=== PATIENT | female | born 1955 | race Caucasian/White ===

== ENCOUNTER → 2021-12-06 | Outpatient (CLI) | payer MEDICARE ==
--- NOTE | 2021-12-07 01:55 | MR ---
EXAMINATION TYPE: MR brain wo/w con DATE OF EXAM: 12/06/2021 COMPARISON: HISTORY: Memory issues, confusion, balance issues CONTRAST: Standard multiplanar, multisequence MRI departmental protocol images were obtained without contrast a nd with 9.5 mL intravenous Gadavist gadolinium contrast. Ventricles have normal size. There is no mass effect or midline shift. No sign of intracranial hemorr philip. Diffusion images show no sign of an acute infarct. Akhatr and white matter structures have fairly normal signal pattern. No evidence of cerebral edema. Brainstem is intact. Corpus callosum is intact . Sella turcica appears normal. No evidence of orbital mass. No evidence of posterior fossa mass. The contrast images show no pathologic enhancement. There is normal enhancement of the venous sinuses . IMPRESSION: Negative MR scan of the brain. Exam appears fairly normal for age.
== END | disposition home or self-care (01) ==
LOC: RADMRIMAIN 14:56
PROVIDERS: ATTEND Psychiatry & Neurology Neurology
DX: R41.3 Other amnesia (principal)
CPT/HCPCS: 70553; A9585